=== PATIENT | female | born 1980 | race Caucasian/White ===

== ENCOUNTER → 2020-11-26 | Outpatient (CLI) | payer OTHER ==
[~2020-11-26] MED LIST: AMITIZA24 MCG PO; LEXAPRO5 MG PO; NO HOME MEDICATIONS; NORCO 325 MG-51 TAB PO; NORCO 325 MG-7.1 TA1 PO; PROZAC 20MG20 MG PO; ZYRTEC 10MG10 MG PO
== END ==
LOC: COL.RAD 09:21
DX: R10.11 Right upper quadrant pain (principal)
CPT/HCPCS: A9537

== ENCOUNTER 2021-01-25 08:40 | Day surgery (SDC) | payer OTHER ==
[~2021-01-25] VITALS: Ht 165.1 cm; Wt 92.2 kg
[~2021-01-25 08:40] MED LIST changes: -AMITIZA24 MCG PO; -PROZAC 20MG20 MG PO; -ZYRTEC 10MG10 MG PO
[2021-01-25] MEDS ORDERED: ZYRTEC 10MG10 MG PO (09:42)
[2021-01-25] MEDS ORDERED: AMITIZA24 MCG PO (09:43)
[2021-01-25] MEDS ORDERED: PROZAC 20MG20 MG PO (09:44)
[2021-01-25 09:54] VITALS: BP 119/80; PULSE 93; TEMP 98.3
[2021-01-25 11:00] VITALS: BP 95/75; PULSE 91; TEMP 98.4
--- NOTE | 2021-01-25 11:00 | NUR ---
PATIENT BROUGHT BACK TO [facility] VIA CART, AMBULATED TO CHAIR WITHOUT DIFFICULTY. ALERT AND ORIENTED, SISTER AT BEDSIDE. PLACED ON MONITORS, STABLE. DENIES PAIN OR NAUSEA. STATES SHE WOULD LIKE A MUFFIN AND WATER. REPORT RECIEVED FROM ALISA CONRAD RN, ALL QUESTIONS ANSWERED. CALL [facility] WITHIN REACH, WILL MONITOR.
[2021-01-25 11:15] VITALS: BP 118/67; PULSE 70
--- NOTE | 2021-01-25 11:15 | NUR ---
PATIENT TOLERATING FOOD AND DRINK WITHOUT DIFFICULTY. MD AT BEDSIDE TO DISCUSS RESULTS OF PROCEDURE. WILL CONTINUE TO MONITOR.
[2021-01-25 11:30] VITALS: BP 117/69; PULSE 88
--- NOTE | 2021-01-25 11:30 | NUR ---
PATIENT STATES SHE FEELS READY TO GO HOME AT THIS TIME. IV REMOVED, INTACT. PATIENT TO GET DRESSED AT THIS TIME.
--- NOTE | 2021-01-25 11:45 | NUR ---
DISCHARGE INSTRUCTIONS REVIEWED WITH PATIENT AND FAMILY, ALL QUESTIONS ANSWERED. PATIENT BROUGHT DOWN TO LOBBY VIA WHEEL CHAIR. PLACED IN SISTERS CAR TO BE DRIVEN HOME.
== END 2021-01-25 11:45 | disposition home or self-care (01) ==
LOC: SDCO 08:40
DX: K64.1 Second degree hemorrhoids (principal); K60.2 Anal fissure, unspecified; K21.9 Gastro-esophageal reflux disease without esophagitis; K30 Functional dyspepsia; K58.0 Irritable bowel syndrome with diarrhea; Z20.822 Contact with and (suspected) exposure to COVID-19; Z79.899 Other long term (current) drug therapy
CPT/HCPCS: J2704; J7120

== ENCOUNTER 2021-08-30 08:34 | Day surgery (SDC) | payer OTHER ==
[~2021-08-30] VITALS: Ht 165.1 cm; Wt 95.0 kg
[~2021-08-30 08:34] MED LIST changes: +AMITIZA24 MCG PO; +PROZAC 20MG20 MG PO; +ZYRTEC 10MG10 MG PO
[2021-08-30] MEDS ORDERED: PROTONIX 40MG T40 MG PO (08:53)
[2021-08-30] MEDS ORDERED: AMITIZA 8MCG8 MCG PO (08:54)
[2021-08-30] MEDS ORDERED: PAMELOR 10MG10 MG PO (08:54)
[2021-08-30] MEDS ORDERED: DIFLUCAN150 MG PO (08:54)
[2021-08-30] MEDS ORDERED: TEMOVATE0.05% TP (08:55)
[2021-08-30] MEDS ORDERED: ZOVIRAX400 MG PO (08:56)
[2021-08-30 08:58] VITALS: BP 124/74; PULSE 93; TEMP 97.9
[2021-08-30 10:49] VITALS: BP 108/55; PULSE 84; TEMP 97.4
--- NOTE | 2021-08-30 10:49 | NUR ---
The patient arrived back to [place] [facility] from the operating room at this time. Post operative vital signs were started at this time. The patient appears drowsy but arouses easily to her name. The patient's is at her bedside at this time. The patient reports feeling cold and was provided an extra warm blanket at this time. The patient requests to try a popsicle. Call light is within reach. Will continue to monitor the patient.
[2021-08-30] MEDS ORDERED: NORCO 325 MG-51 TAB PO (11:02)
[2021-08-30 11:04] VITALS: BP 106/54; PULSE 74
--- NOTE | 2021-08-30 11:04 | NUR ---
The patient appears to be tolerating the popsicle well and denies wanting anything further at this time. Vital signs appear stable. Will continue to monitor the patient.
[2021-08-30 11:19] VITALS: BP 107/61; PULSE 64
--- NOTE | 2021-08-30 11:19 | NUR ---
The patient denies any pain or nausea at this time. The patient voices a desire to be discharged home when ready. remains at bedside.
[2021-08-30 11:40] VITALS: BP 104/68; PULSE 69
--- NOTE | 2021-08-30 11:40 | NUR ---
Discharge instructions were reviewed with the patient and her at this time. They both verbalized understanding and have no questions for the nurse at this time. The patient's IV to her left hand was removed and a pressure dressing was applied to the site. The nurse instructed the patient to get dressed and notify the staff when she is ready to be escorted out.
--- NOTE | 2021-08-30 11:55 | NUR ---
The patient was escorted out via wheelchair to a private vehicle by JESUS Reyez. The patient's belongings and discharge paperwork were sent with her. The patient's is present to drive her home.
== END 2021-08-30 11:55 | disposition home or self-care (01) ==
LOC: SDCO 08:34
DX: K60.2 Anal fissure, unspecified (principal); K62.89 Other specified diseases of anus and rectum; K62.5 Hemorrhage of anus and rectum; K21.9 Gastro-esophageal reflux disease without esophagitis; G43.909 Migraine, unspecified, not intractable, without status migrainosus; G47.33 Obstructive sleep apnea (adult) (pediatric); F32.A Depression, unspecified; F41.9 Anxiety disorder, unspecified; Z99.89 Dependence on other enabling machines and devices; Z90.710 Acquired absence of both cervix and uterus; Z79.899 Other long term (current) drug therapy; Z86.73 Personal history of transient ischemic attack (TIA), and cerebral infarction without residual deficits; Z80.9 Family history of malignant neoplasm, unspecified; Z83.3 Family history of diabetes mellitus
CPT/HCPCS: J0690; J2704; J3010; J7120